=== PATIENT | male | born 1970 | race Caucasian/White ===

== ENCOUNTER 2020-01-04 17:07 | Emergency (ER) | payer SELFPAY ==
[~2020-01-04] VITALS: Ht 182.9 cm; Wt 117.9 kg
[2020-01-04] MEDS ORDERED: TETANUS-DIPTH-ACEL PERTUSSIS 0.5ML SYR Tdap IM ONE (19:00)
[2020-01-04] MEDS ORDERED: LIDOCAINE 1% HCL (LOCAL ANESTH.) INJ 20ML MDV ID ONE (20:00)
[2020-01-04] MEDS ORDERED: cefTRIAXone 1GM/50ML D5W 50 ML IV ONE (20:30)
[2020-01-04 21:33] VITALS: BP 143/78
== END 2020-01-04 22:07 | disposition home or self-care (01) ==
LOC: ER 17:07
DX: S31.31XA Laceration without foreign body of scrotum and testes, initial encounter (principal); W54.0XXA Bitten by dog, initial encounter; Y93.89 Activity, other specified; Y92.89 Other specified places as the place of occurrence of the external cause; Y99.8 Other external cause status
CPT/HCPCS: 12002; 76870; 90471; 90715; 96365; 99284; J0696; J2001

== ENCOUNTER 2020-01-13 11:05 | Emergency (ER) | payer SELFPAY ==
[~2020-01-13] VITALS: Ht 182.9 cm; Wt 117.9 kg
[2020-01-13 11:32] VITALS: BP 141/91
== END 2020-01-13 11:54 | disposition home or self-care (01) ==
LOC: ER 11:05
DX: S31.3 Open wound of scrotum and testes (principal); W54.0XXD Bitten by dog, subsequent encounter